=== PATIENT | female | born 1995 | race Caucasian/White ===

== ENCOUNTER 2019-12-01 18:34 | Emergency (ER) | payer BC ==
[2019-12-01 18:53] VITALS: BP 124/86
--- NOTE | 2019-12-01 18:57 | UC ---
Allergic Reaction HPI - HPI Summary HPI Summary: Pt states she started to have left eye swelling and red blotches on the right side of her face yesterday and the redness and swelling have continued to become worse. Pt states she took Benadryl yesterday and today. Her face does itch - History of Current Complaint Chief Complaint: UCGeneralIllness Stated Complaint: ALLERGIC REACTION Time Seen by Provider: 12/01/19 18:54 Hx Obtained From: Patient Hx Last Menstrual Period: 11/29/19 ?: No Onset/Duration: Sudden Onset, Lasting Days - 1 Severity Initially: Moderate Severity Currently: Mild Pain Intensity: 0 Character: Swelling, Pruritus, Hives - Allergies/Home Medications Allergies/Adverse Reactions: Allergies Allergy/AdvReac Type Severity Reaction Status Date / Time aloe Allergy Rash Verified 12/01/19 18:53 Home Medications: Home Medications diphenhydrAMINE HCl [Benadryl Allergy] 50 mg PO Q6HR PRN 12/01/19 [History Confirmed 12/01/19] PMH/Surg Hx/FS Hx/Imm Hx Previously Healthy: Yes - Surgical History Surgical History: None - Family History Known Family History: Positive: Hypertension - Social History Alcohol Use: Occasionally Substance Use Type: None Smoking Status (MU): Light Every Day Tobacco Smoker Household Exposure Type: Cigarettes Review of Systems All Other Systems Reviewed And Are Negative: Yes Skin: Positive: Other - hives around eyes Eyes: Positive: Other - swelling of lids Is Patient Immunocompromised?: No Physical Exam Triage Information Reviewed: Yes Appearance: Well-Appearing, Well-Nourished, Pain Distress Vital Signs: Initial Vital Signs Temp 98 F 12/01/19 18:48 Pulse 75 12/01/19 18:48 Resp 12 12/01/19 18:48 BP 124/86 12/01/19 18:48 Pulse Ox 100 12/01/19 18:48 Vital Signs Reviewed: Yes Eyes: Positive: Other: - lower and upper eyelid swelling, mild, able to see without difficulty, skin around the eyes red and blotchy, bumpay rash on rest of face Allergic Reaction Course/Dx - Course Course Of Treatment: hx obtained, exam performed ,meds reviewed, treated for allergic reaction to unkown allergen - Differential Dx/Diagnosis Differential Diagnosis/HQI/PQRI: Angioedema, Local Allergic Reaction, Urticaria Provider Diagnosis: Allergic reaction Discharge ED - Sign-Out/Discharge Documenting (check all that apply): Patient Departure All imaging exams completed and their final reports reviewed: No Studies - Discharge Plan Condition: Stable Disposition: HOME Prescriptions: predniSONE [Prednisone 20 MG TAB] 20 mg PO DAILY #18 tablet Patient Education Materials: Urticaria (ED), General Allergic Reaction (ED) Referrals: No Primary Care Phys,NOPCP [Primary Care Provider] - Additional Instructions: 1. take the medication as prescribed, continue with benadryl at night, zyrtec dureing the day cool compresses on eyes for itching. 2. FOllow up in ER if the swelling redness or hives is getting worse, or you develop any difficulty breathing - Billing Disposition and Condition Condition: STABLE Disposition: Home - Attestation Statements Provider Attestation: Per institutional requirements, I have reviewed the chart, however, I was not consulted specifically or made aware of this patient by the midlevel provider. I did not personally evaluate, interact with , or disposition this patient.
== END 2019-12-01 19:07 | disposition home or self-care (01) ==
LOC: UCCORT 18:34
DX: T78.40XA Allergy, unspecified, initial encounter (principal); F17.210 Nicotine dependence, cigarettes, uncomplicated; X58.XXXA Exposure to other specified factors, initial encounter; Z91.09 Other allergy status, other than to drugs and biological substances
CPT/HCPCS: 99202; G0463; J7512